=== PATIENT | male | born 1940 | race Caucasian/White ===

== ENCOUNTER 2017-03-30 12:17 | Emergency (ER) | payer MEDICARE ==
[~2017-03-30] VITALS: Ht 167.6 cm; Wt 87.0 kg
[~2017-03-30 12:17] MED LIST: AMLO10TA2 PO; ASPI-496 PO; ASPI-515 PO; CIPR500T87 PO; GLIM4TAB2 PO; HYDR-3240 PO; INSU100C5 SQ-INSULIN; INSU100V8 SQ; INSU200I4 INJ; LIRA0.6P INJ; LISI-167 PO; LISI5TAB7 PO; LOVA20TA2 PO; METF10002 PO; METH1TAB41 PO; METH750T2 PO; OMEG-14 PO; OMEP-110 PO; ONDA4TAB12 PO; OXYC1TAB9 PO; PIOG15TA4 PO; TAMS-11 PO; TERB250T3 PO
[2017-03-30 12:44] VITALS: BP 130/72
[2017-03-30 14:41] LABS: BASOPHILS # (AUTO) 0.04 x10^3/uL (0-0.1); BASOPHILS % (AUTO) 0 % (0-1); EOSINOPHILS # (AUTO) 0.31 x10^3/uL (0-0.4); EOSINOPHILS % (AUTO) 3 % (1-7); LYMPHOCYTES # (AUTO) 2.51 x10^3/uL (1-3.4); LYMPHOCYTES % (AUTO) 28 % (22-44); MD NO; MEAN CORPUSCULAR HEMOGLOBIN 32.1 pg (27.5-34.5); MEAN CORPUSCULAR HGB CONC 33.7 g/dL (33.2-36.2); MEAN CORPUSCULAR VOLUME 95.3 fL (81-97); MEAN PLATELET VOLUME 8.8 fL (7.4-10.4); MONOCYTES # (AUTO) 0.82 x10^3/uL (0.2-0.8); MONOCYTES % (AUTO) 9 % (2-9); NEUTROPHILS # (AUTO) 5.37 x10^3/uL (1.8-6.8); NEUTROPHILS % (AUTO) 59 % (42-75); PLATELET COUNT 161 x10^3/uL (130-400); RED BLOOD COUNT 5.62 x10^6/uL (4.38-5.82); RED CELL DISTRIBUTION WIDTH 13.2 % (9.4-14.8)
[2017-03-30 14:47] LABS: ALBUMIN 4.1 g/dL (3.4-5.0); ANION GAP 4 mmol/L (5-15); CALCIUM 9.2 mg/dL (8.5-10.1); CHLORIDE 104 mmol/L (98-107)
[2017-03-30 14:52] LABS: CREATININE 1.34 mg/dL (0.7-1.3); TROPONIN I < 0.015 ng/mL (0.000-0.045)
[2017-03-30 16:47] LABS: MICROSCOPIC AUTO
[2017-03-30 16:52] LABS: CULTURE INDICATED? NO
== END 2017-03-30 17:33 | disposition home or self-care (01) ==
LOC: ED 17:25
DX: M62.81 Muscle weakness (generalized) (principal); T38.3X5A Adverse effect of insulin and oral hypoglycemic [antidiabetic] drugs, initial encounter; E11.9 Type 2 diabetes mellitus without complications; Z90.49 Acquired absence of other specified parts of digestive tract; Z79.4 Long term (current) use of insulin; Z98.1 Arthrodesis status; Y92.89 Other specified places as the place of occurrence of the external cause
CPT/HCPCS: 36415; 71045; 80048; 81001; 82040; 82962; 84484; 85025; 93005; 99285

== ENCOUNTER 2017-08-21 15:33 | Emergency (ER) | payer MEDICARE ==
[~2017-08-21] VITALS: Ht 167.6 cm; Wt 91.1 kg
[2017-08-21] MEDS ORDERED: LIDOCAINE-MPF 1%, 5ML INFIL ONE (16:00)
[2017-08-21] MEDS ORDERED: DIPH,PERTUSS(ACELL),TET VAC/PF 0.5 ML IM-VACC ONE ×2 (16:00→16:14)
[2017-08-21 16:28] LABS: BASOPHILS # (AUTO) 0.05 x10^3/uL (0-0.1); BASOPHILS % (AUTO) 1 % (0-1); EOSINOPHILS # (AUTO) 0.52 x10^3/uL (0-0.4); EOSINOPHILS % (AUTO) 5 % (1-7); LYMPHOCYTES # (AUTO) 3.29 x10^3/uL (1-3.4); LYMPHOCYTES % (AUTO) 31 % (22-44); MD NO; MEAN CORPUSCULAR HEMOGLOBIN 32.2 pg (27.5-34.5); MEAN CORPUSCULAR HGB CONC 33.6 g/dL (33.2-36.2); MEAN CORPUSCULAR VOLUME 95.7 fL (81-97); MEAN PLATELET VOLUME 8.8 fL (7.4-10.4); MONOCYTES # (AUTO) 0.79 x10^3/uL (0.2-0.8); MONOCYTES % (AUTO) 7 % (2-9); NEUTROPHILS # (AUTO) 6.15 x10^3/uL (1.8-6.8); NEUTROPHILS % (AUTO) 57 % (42-75); PLATELET COUNT 197 x10^3/uL (130-400); RED BLOOD COUNT 4.94 x10^6/uL (4.38-5.82); RED CELL DISTRIBUTION WIDTH 13.8 % (9.4-14.8)
[2017-08-21] MEDS ORDERED: SODIUM CHLORIDE 0.9% 1,000ML IVBOLUS ONE (16:30)
[2017-08-21 16:37] LABS: ALBUMIN 3.9 g/dL (3.4-5.0); ANION GAP 8 mmol/L (5-15); CALCIUM 9.6 mg/dL (8.5-10.1); CHLORIDE 110 mmol/L (98-107); CREATININE 1.69 mg/dL (0.7-1.3)
[2017-08-21 16:40] LABS: TROPONIN I < 0.015 ng/mL (0.000-0.045)
[2017-08-21] MEDS ORDERED: LIDOCAINE-MPF 1%, 2ML ONE (17:14)
[2017-08-21] MEDS ORDERED: BACITRACIN ZINC OINT 500U/GM, 0.9 GM ONE (17:52)
[2017-08-21 19:07] VITALS: BP 145/86
== END 2017-08-21 19:10 | disposition home or self-care (01) ==
LOC: ED 18:15
DX: S61.511A Laceration without foreign body of right wrist, initial encounter (principal); E11.9 Type 2 diabetes mellitus without complications; Z86.73 Personal history of transient ischemic attack (TIA), and cerebral infarction without residual deficits; Z85.9 Personal history of malignant neoplasm, unspecified; Z90.49 Acquired absence of other specified parts of digestive tract; W45.8XXA Other foreign body or object entering through skin, initial encounter; Y93.89 Activity, other specified; Y92.098 Other place in other non-institutional residence as the place of occurrence of the external cause; Y99.8 Other external cause status
CPT/HCPCS: 12042; 36415; 71045; 73130; 80048; 82040; 82962; 84484; 85025; 90715; 93005; 96360; 96372; 99285; J7030

== ENCOUNTER 2018-01-16 14:15 | Emergency (ER) | payer MEDICARE ==
[~2018-01-16] VITALS: Ht 167.6 cm; Wt 94.2 kg
[~2018-01-16 14:15] MED LIST changes: -AMLO10TA2 PO; +AMLO10TA6 PO; +OXYC-432 PO; -OXYC1TAB9 PO
[2018-01-16] MEDS ORDERED: MAALOX/HYOSCYAMINE/LIDOCAINE 45 ML BTL PO ONE (15:00)
[2018-01-16 15:15] LABS: BASOPHILS # (AUTO) 0.03 x10^3/uL (0-0.1); BASOPHILS % (AUTO) 0 % (0-1); EOSINOPHILS # (AUTO) 0.28 x10^3/uL (0-0.4); EOSINOPHILS % (AUTO) 3 % (1-7); LYMPHOCYTES % (AUTO) 25 % (22-44); MD NO; MEAN CORPUSCULAR HEMOGLOBIN 32.8 pg (27.5-34.5); MEAN CORPUSCULAR HGB CONC 34.1 g/dL (33.2-36.2); MEAN CORPUSCULAR VOLUME 96.2 fL (81-97); MEAN PLATELET VOLUME 8.9 fL (7.4-10.4); MONOCYTES % (AUTO) 8 % (2-9); NEUTROPHILS # (AUTO) 5.17 x10^3/uL (1.8-6.8); NEUTROPHILS % (AUTO) 63 % (42-75); PLATELET COUNT 168 x10^3/uL (130-400); RED BLOOD COUNT 5.02 x10^6/uL (4.38-5.82); RED CELL DISTRIBUTION WIDTH 13.5 % (9.4-14.8)
[2018-01-16 15:28] LABS: ALANINE AMINOTRANSFERASE 33 U/L (12-78); ALBUMIN 3.3 g/dL (3.4-5.0); ANION GAP 11 mmol/L (5-15); CALCIUM 8.7 mg/dL (8.5-10.1); CHLORIDE 105 mmol/L (98-107); CREATININE 1.43 mg/dL (0.7-1.3)
[2018-01-16 15:30] LABS: ALKALINE PHOSPHATASE 82 U/L (45-117); BILIRUBIN,TOTAL 0.6 mg/dL (0.2-1.0); TOTAL PROTEIN 7.4 g/dL (6.4-8.2)
[2018-01-16] MEDS ORDERED: OMNIPAQUE 350 MG/ML, 100ML BOTTLE ONE (16:02)
[2018-01-16] MEDS ORDERED: MAALOX/HYOSCYAMINE/LIDOCAINE 45 ML BTL ONE (16:07)
[2018-01-16 16:39] VITALS: BP 124/85
== END 2018-01-16 17:28 | disposition home or self-care (01) ==
LOC: ED 17:22
DX: K21.0 Gastro-esophageal reflux disease with esophagitis (principal); E11.9 Type 2 diabetes mellitus without complications; Z86.73 Personal history of transient ischemic attack (TIA), and cerebral infarction without residual deficits; Z87.442 Personal history of urinary calculi
CPT/HCPCS: 36415; 74177; 76700; 80053; 83690; 85025; 93005; 99285; Q9967

== ENCOUNTER → 2018-02-22 | Outpatient (CLI) | payer MEDICARE | END | disposition home or self-care (01) | LOC: CFH 16:17 | PROVIDERS: ATTEND Psychiatry & Neurology Neurology | DX: I65.23 Occlusion and stenosis of bilateral carotid arteries (principal) | CPT/HCPCS: 93880 ==

== ENCOUNTER → 2018-05-25 | Outpatient (CLI) | payer MEDICARE ==
[~2018-05-25] MED LIST changes: -AMLO10TA6 PO; +AMLO10TA8 PO; +REGADENOSON 0.4 MG/5 ML SYRINGE ONE
== END | disposition home or self-care (01) ==
LOC: CFH 06:45
PROVIDERS: ATTEND Internal Medicine Cardiovascular Disease
DX: Z01.810 Encounter for preprocedural cardiovascular examination (principal); I08.2 Rheumatic disorders of both aortic and tricuspid valves; I11.9 Hypertensive heart disease without heart failure; E78.5 Hyperlipidemia, unspecified; E11.9 Type 2 diabetes mellitus without complications; Z86.73 Personal history of transient ischemic attack (TIA), and cerebral infarction without residual deficits
CPT/HCPCS: 78452; 93017; 93306; A9502; J2785

== ENCOUNTER 2019-04-05 16:10 | Emergency (ER) | payer MEDICARE ==
[~2019-04-05] VITALS: Ht 175.3 cm; Wt 92.0 kg
[~2019-04-05 16:10] MED LIST changes: -GLIM4TAB2 PO; +GLIM4TAB4 PO; -INSU200I4 INJ; +INSU200I4 SQ-INSULIN; -REGADENOSON 0.4 MG/5 ML SYRINGE ONE
[2019-04-05] MEDS ORDERED: ASPIRIN 81 MG TABLET CHEW PO ONE (17:00)
[2019-04-05] MEDS ORDERED: SODIUM CHLORIDE FLUSH 10ML SYR IVF ONE (17:00)
[2019-04-05 17:08] LABS: BASOPHILS # (AUTO) 0.01 x10^3/uL (0-0.1); BASOPHILS % (AUTO) 0 % (0-1); EOSINOPHILS # (AUTO) 0.12 x10^3/uL (0-0.4); EOSINOPHILS % (AUTO) 2 % (1-7); LYMPHOCYTES # (AUTO) 1.23 x10^3/uL (1-3.4); LYMPHOCYTES % (AUTO) 16 % (22-44); MD NO; MEAN CORPUSCULAR HEMOGLOBIN 32.1 pg (27.5-34.5); MEAN CORPUSCULAR HGB CONC 33.7 g/dL (33.2-36.2); MEAN CORPUSCULAR VOLUME 95.3 fL (81-97); MEAN PLATELET VOLUME 8.5 fL (7.4-10.4); MONOCYTES # (AUTO) 0.46 x10^3/uL (0.2-0.8); MONOCYTES % (AUTO) 6 % (2-9); NEUTROPHILS # (AUTO) 6.08 x10^3/uL (1.8-6.8); NEUTROPHILS % (AUTO) 77 % (42-75); PLATELET COUNT 180 x10^3/uL (130-400); RED BLOOD COUNT 4.72 x10^6/uL (4.38-5.82); RED CELL DISTRIBUTION WIDTH 13.8 % (9.4-14.8)
[2019-04-05 17:17] LABS: ALBUMIN 3.6 g/dL (3.4-5.0); ANION GAP 7 mmol/L (5-15); CALCIUM 8.8 mg/dL (8.5-10.1); CHLORIDE 106 mmol/L (98-107); CREATININE 1.33 mg/dL (0.7-1.3)
[2019-04-05] MEDS ORDERED: NITROGLYCERIN SINGLE TAB 0.4 MG SL ONE ×2 (17:21→19:22)
[2019-04-05] MEDS ORDERED: ASPIRIN 81 MG TABLET CHEW ONE (17:21)
[2019-04-05 17:22] LABS: TROPONIN I < 0.015 ng/mL (0.000-0.045)
[2019-04-05] MEDS: NITROGLYCERIN SINGLE TAB 0.4 MG SL PRN ×2 (17:36→17:43)
--- NOTE | 2019-04-05 17:36 | NUR ---
PIV STARTED. NITRO TAB SL GIVEN FOR CHEST PAIN 6-09/29 AT THIS TIME.
[2019-04-05] MEDS ORDERED: METF1000 PO (17:44)
[2019-04-05] MEDS ORDERED: PANT40TA5 PO (17:45)
[2019-04-05] MEDS ORDERED: LISI40TA PO (17:46)
--- NOTE | 2019-04-05 17:56 | NUR ---
NOTIFIED DR. MARRUFO THAT PATIENT STATES HE HAS ALMOST NO CHEST PAIN AFTER RECEIVING 2 TABS OF NITRO SL. APPLIED OXYGEN AT 1LPM FOR 89-90% SPO2 ON ROOM AIR.
[2019-04-05 17:58] VITALS: BP 160/76
--- NOTE | 2019-04-05 17:59 | NUR ---
DR. MARRUFO AT BEDSIDE RECOMMENDING HOSPITAL ADMISSION. NOTIFIED DR. MARRUFO THAT PATIENT'S ROOM AIR SPO2=89-90% AT TIMES.
--- NOTE | 2019-04-05 18:48 | NUR ---
Patient given discharge instructions and they have confirmed that they understand the instructions. Patient ambulatory with steady gait.
== END 2019-04-05 18:49 | disposition home or self-care (01) ==
LOC: ED 18:43
DX: R07.89 Other chest pain (principal); I10 Essential (primary) hypertension; E11.9 Type 2 diabetes mellitus without complications; K21.9 Gastro-esophageal reflux disease without esophagitis; Z90.49 Acquired absence of other specified parts of digestive tract; Z86.73 Personal history of transient ischemic attack (TIA), and cerebral infarction without residual deficits
CPT/HCPCS: 36415; 71045; 80048; 82040; 83880; 84484; 85025; 93005; 99284

== ENCOUNTER 2019-07-05 10:21 | Outpatient (CLI) | payer MEDICARE ==
[~2019-07-05 10:21] MED LIST changes: -GLIM4TAB4 PO; +GLIM4TAB8 PO; +LISI40TA PO; +METF1000 PO; +ONDA-89 PO; -ONDA4TAB12 PO; +PANT40TA5 PO; -PIOG15TA4 PO; +PIOG15TA69 PO
[2019-07-05] MEDS ORDERED: PIOG30TA67 PO (11:15)
[2019-07-05 11:23] LABS: MICROSCOPIC AUTO
[2019-07-05 11:26] LABS: CULTURE INDICATED? YES
[2019-07-05 11:32] LABS: ALANINE AMINOTRANSFERASE 30 U/L (12-78); ALBUMIN 3.7 g/dL (3.4-5.0); ANION GAP 6 mmol/L (5-15); CALCIUM 9.1 mg/dL (8.5-10.1); CHLORIDE 112 mmol/L (98-107); CREATININE 1.21 mg/dL (0.7-1.3)
[2019-07-05 11:34] LABS: ALKALINE PHOSPHATASE 78 U/L (45-117); BILIRUBIN,TOTAL 0.7 mg/dL (0.2-1.0); TOTAL PROTEIN 7.7 g/dL (6.4-8.2)
[2019-07-05 11:40] LABS: BASOPHILS # (AUTO) 0.04 x10^3/uL (0-0.1); BASOPHILS % (AUTO) 1 % (0-1); EOSINOPHILS # (AUTO) 0.26 x10^3/uL (0-0.4); EOSINOPHILS % (AUTO) 4 % (1-7); LYMPHOCYTES # (AUTO) 1.75 x10^3/uL (1-3.4); LYMPHOCYTES % (AUTO) 27 % (22-44); MD NO; MEAN CORPUSCULAR HEMOGLOBIN 30.8 pg (27.5-34.5); MEAN CORPUSCULAR HGB CONC 32.8 g/dL (33.2-36.2); MEAN CORPUSCULAR VOLUME 94.1 fL (81-97); MEAN PLATELET VOLUME 8.3 fL (7.4-10.4); MONOCYTES # (AUTO) 0.71 x10^3/uL (0.2-0.8); MONOCYTES % (AUTO) 11 % (2-9); NEUTROPHILS # (AUTO) 3.86 x10^3/uL (1.8-6.8); NEUTROPHILS % (AUTO) 58 % (42-75); PLATELET COUNT 200 x10^3/uL (130-400); RED BLOOD COUNT 5.07 x10^6/uL (4.38-5.82); RED CELL DISTRIBUTION WIDTH 14.5 % (9.4-14.8)
[2019-07-05 11:41] LABS: INTERNATIONAL NORMALIZED RATIO 1.07 (0.93-1.1); PROTHROMBIN TIME 11.4 Seconds (9.6-11.5)
[2019-07-19] MEDS ORDERED: LIRA0.6P SQ-INSULIN (08:07)
[2019-07-19] MEDS ORDERED: DULA0.75 SQ-INSULIN (08:07)
[2019-07-20] MEDS ORDERED: OXYC-307 PO (09:50)
[2019-07-20] MEDS ORDERED: TIZA4TAB9 PO (09:53)
== END 2019-07-05 23:59 | disposition home or self-care (01) ==
LOC: STAR 10:21
PROVIDERS: ATTEND Neurological Surgery
DX: Z01.818 Encounter for other preprocedural examination (principal); M54.12 Radiculopathy, cervical region
CPT/HCPCS: 36415; 71046; 80053; 81001; 83036; 85025; 85610; 85730; 87077; 87086; 87186; 93005

== ENCOUNTER 2019-07-25 17:47 | Emergency (ER) | payer MEDICARE ==
[~2019-07-25] VITALS: Ht 167.6 cm; Wt 89.8 kg
[~2019-07-25 17:47] MED LIST changes: +DULA0.75 SQ-INSULIN; +LIRA0.6P SQ-INSULIN; +OXYC-307 PO; +PIOG30TA67 PO; +TIZA4TAB9 PO
--- NOTE | 2019-07-25 18:16 | NUR ---
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
--- NOTE | 2019-07-25 18:40 | NUR ---
PT RESTING IN BED IN HOSPITAL GOWN. LAB IN AT THIS TIME TO DRAW BLOOD. AT BEDSIDE. PT ON VITALS MONITORS.
[2019-07-25] MEDS ORDERED: HYDROmorphone 1 MG/ML, 1ML INJ ONE ×2 (18:47→20:55)
[2019-07-25 18:50] LABS: HCT (SEDRATE) 43.7 % (39.2-51.8)
[2019-07-25] MEDS: HYDROmorphone 1 MG/ML, 1ML INJ IVPush PRN ×2 (18:50→20:59)
[2019-07-25 18:51] LABS: BASOPHILS # (AUTO) 0.06 x10^3/uL (0-0.1); BASOPHILS % (AUTO) 1 % (0-1); EOSINOPHILS # (AUTO) 0.16 x10^3/uL (0-0.4); EOSINOPHILS % (AUTO) 2 % (1-7); LYMPHOCYTES # (AUTO) 1.34 x10^3/uL (1-3.4); LYMPHOCYTES % (AUTO) 15 % (22-44); MD NO; MEAN CORPUSCULAR HEMOGLOBIN 30.4 pg (27.5-34.5); MEAN CORPUSCULAR HGB CONC 32.9 g/dL (33.2-36.2); MEAN CORPUSCULAR VOLUME 92.4 fL (81-97); MEAN PLATELET VOLUME 8.6 fL (7.4-10.4); MONOCYTES % (AUTO) 9 % (2-9); NEUTROPHILS # (AUTO) 6.88 x10^3/uL (1.8-6.8); NEUTROPHILS % (AUTO) 75 % (42-75); PLATELET COUNT 246 x10^3/uL (130-400); RED BLOOD COUNT 4.74 x10^6/uL (4.38-5.82); RED CELL DISTRIBUTION WIDTH 14.9 % (9.4-14.8)
--- NOTE | 2019-07-25 18:52 | NUR ---
PT MEDICATED FOR PAIN. GOING TO MRI NOW
--- NOTE | 2019-07-25 19:00 | NUR ---
REPORT GIVEN TO CULLEN SIMPSON
[2019-07-25 19:01] LABS: ALBUMIN 3.1 g/dL (3.4-5.0); ANION GAP 8 mmol/L (5-15); CALCIUM 9.3 mg/dL (8.5-10.1); CHLORIDE 106 mmol/L (98-107); CREATININE 1.35 mg/dL (0.7-1.3)
[2019-07-25] MEDS ORDERED: GADOTERATE 10 MMOL/20 ML SYR ONE (20:07)
[2019-07-25 21:00] VITALS: BP 195/78
--- NOTE | 2019-07-25 21:31 | NUR ---
Patient resting. Pain 7/10. Second dose of dilaudid given.
== END 2019-07-25 22:33 | disposition home or self-care (01) ==
LOC: ED 19:20
DX: M54.2 Cervicalgia (principal); R20.2 Paresthesia of skin; I10 Essential (primary) hypertension; E11.9 Type 2 diabetes mellitus without complications; K21.9 Gastro-esophageal reflux disease without esophagitis; Z90.49 Acquired absence of other specified parts of digestive tract
CPT/HCPCS: 36415; 72156; 80048; 82040; 85025; 85651; 86140; 96374; 96376; 99285; A9575; J1170; 96361; 99284